=== PATIENT | female | born 1960 | race Caucasian/White ===

== ENCOUNTER 2024-04-20 12:22 | Emergency (ER) | payer MEDICARE, SELFPAY ==
[2024-04-20 12:24] VITALS: BP 143/92
[2024-04-20 12:30] VITALS: BP 127/75; BMI 23.5
[2024-04-20 12:58] LABS: % Basophils 0.8 % (0-2); % Eosinophils 2.7 % (0-6); % Immature Granulocytes 0.2 % (0-0.5); % Monocytes 7.2 % (1.7-9.3); % Neutrophils 74.1 % (42.2-75.2); Absolute Basophils 0.1 10^3/uL (0-0.2); Absolute Eosinophils 0.3 10^3/uL (0-0.7); Absolute Lymphocytes 1.4 10^3/uL (1.2-3.4); Absolute Monocytes 0.7 10^3/uL (0.1-0.6); Absolute Neutrophils 6.9 10^3/uL (1.4-6.5); Hematocrit 43.1 % (37.0-47.0); Hemoglobin 14.9 g/dL (12.0-16.0); Mean Corp Hgb Conc. 34.6 g/dL (33.0-37.0); Mean Corpuscular Hgb 33.2 pg (27.0-31.0); Mean Platelet Volume 10.1 fL (7.4-10.4); Nucleated Red Blood Cells % 0 %; Platelet Count 274 10^3/uL (130-400); Red Blood Cell Count 4.49 10^6/uL (4.20-5.40); Red Cell Dist. Width 12.3 % (11.5-14.5); White Blood Cell Count 9.3 10^3/uL (4.8-10.8)
[2024-04-20 13:13] LABS: ALT (SGPT) 24 U/L (0-35); AST (SGOT) 39 U/L (14-36); Albumin 4.1 g/dl (3.5-5.0); Alkaline Phosphatase 93 U/L (38-126); Blood Urea Nitrogen 5 mg/dl (7-17); Calcium 9.4 mg/dl (8.4-10.2); Carbon Dioxide 19 mmol/L (22-30); Chloride 108 mmol/L (98-107); Glucose 108 mg/dl (70-99); Potassium 4.5 mmol/L (3.5-5.1); Sodium 140 mmol/L (135-145); Total Bilirubin 0.8 mg/dl (0.2-1.3); Total Protein 6.5 g/dl (6.3-8.2); eGFR > 60.00
--- NOTE | 2024-04-20 13:15 | ED.GENMED ---
History of Present Illness
General
Chief Complaint: Breathing Problem
Source: patient
Exam Limitations: none
Time Seen by Provider: 04/20/24 13:03
History of Present Illness
History of Present Illness:
63-year-old female with history of COPD presents complaining of right sided chest pain starting 4 days ago getting worse. The pain is made worse with the cough breathing removed. She has been traveling extensively over the past [address] weeks[address]
from [facility] and [place] back to [facility] to here. She is moving here. She states she has been lifting boxes but she does not recall any significant injury. She denies any leg swelling or calf pain.
Phy Exam
Physical Exam
Physical Exam:
General: Uncomfortable appearing female no acute respiratory distress
HEENT: Normocephalic atraumatic
Heart: Regular rate and rhythm no murmur
Lungs: Clear no wheeze
Musculoskeletal exam: Right lateral chest wall is tender. No step-off or deformity
Abdomen is soft nontender nondistended no guarding rebound normal bowel sounds
Extremities: No cyanosis
Scores
Heart Failure Risk
Heart Failure Risk Score: Not Applicable
PESI
Age: 63
Sex: Female
History of cancer: No
History of heart failure: No
History of chronic lung disease: Yes
Heart rate >/= 110: No
Systolic BP <100 mmHg: No
Respiratory rate >/= 30: No
Temperature <36�C/96.8�F: No
Altered mental status (disorientation, lethargy, stupor, or coma): No
O2 saturation <90%: No
Score: 71
Class: Class 2: <86 (low mortality 1.7-3.5%)
Course
Orders/Labs/Results
Orders:
Orders
04/20/24 12:38
EKG [Electrocardiogram (*1)] Urgent
Reason for Study: Chest Pain
EKG- Treatment ONCE
04/20/24 12:43
CXR2 [CR Chest - 2 Views ] Urgent
Comment:
Reason For Exam: chest pain
04/20/24 12:49
Complete Blood Count/With Diff Urgent
Comprehensive Metabolic Panel Urgent
Troponin I Urgent
04/20/24 13:14
CT Chest Pe Study Urgent
Comment:
Reason For Exam: right chest pain, recent extended travel
04/20/24 13:16
Ketorolac [Toradol] 15 mg IV NOW STA
04/20/24 14:56
Apixaban [Eliquis] 10 mg PO NOW STA
Abnormal Lab Results
04/20/24
12:49
MCH 33.2 H pg
(27.0-31.0)
Absolute Neuts (auto) 6.9 H 10^3/uL
(1.4-6.5)
Absolute Monos (auto) 0.7 H 10^3/uL
(0.1-0.6)
Lymphocytes % 15.0 L %
(20.5-51.1)
Chloride 108 H mmol/L
(98-107)
Carbon Dioxide 19 L mmol/L
(22-30)
BUN 5 L mg/dl
(7-17)
Glucose 108 H mg/dl
(70-99)
AST 39 H U/L
(14-36)
04/20/24 12:49
04/20/24 12:49
Vital Signs
Initial and Last Documented VS:
Initial Vital Signs
Temp Pulse Resp BP Pulse Ox
98.0 F 97 16 143/92 99
04/20/24 12:24 04/20/24 12:24 04/20/24 12:24 04/20/24 12:24 04/20/24 12:24
Last Documented Vital Signs
Temp Pulse Resp BP Pulse Ox
98.5 F 85 18 127/75 96
04/20/24 12:30 04/20/24 12:30 04/20/24 12:30 04/20/24 12:30 04/20/24 13:15
MDM/Problems Addressed
Differential Diagnosis Includes:
Right chest pain with extensive travel. Consider PE versus muscular strain versus rib injury. X-ray ordered of the chest through triage is negative for acute finding. Vital signs are stable but given extensive travel, CT of the chest PE study
ordered
*Critical Care Note
Total Time (30-74mins, 75-104mins- exclusive of procedures): Not Applicable
Update Note
Update Note:
CT chest does demonstrate small PE in the right lung. No hypertension no heart strain vital signs remained stable. Pasi score 71 which puts her at a low risk. Curb sided pulmonology. Will start on Eliquis 10 mg twice a day for a week then drop
down to 5 mg twice a day for thereafter. She was advised to follow-up with pulmonology as well as family doctor secondary to mass noted on right breast. She was given a copy of her CAT scan report. Prescription for Eliquis was provided. Advised
against NSAIDs for the future while on Eliquis. Stable for discharge
ED Attending Note
-
Portions of this chart may have been created with voice recognition software.� Occasional wrong word or��sound alike� substitutions may have occurred due to the inherent limitations of voice recognition software.
Discharge Plan
Departure
Patient Disposition: Home (Routine Discharge)
Date of Disposition: 04/20/24
Time of Disposition: 14:57
Patient with high blood pressure during this ER visit?: No
Discharge Problem:
Pulmonary embolism
Instructions: Apixaban, Pulmonary embolism - Discharge instructions
Prescriptions:
New
Eliquis 5 mg tablet
5 mg PO BID Qty: 60 0RF
Rx Instructions:
Take 10mg twice a day for the first week. Then take 5mg twice a day for the time after.
Referrals:
NONE,* [Family Provider] -
Eliseo Taylor MD [Active] -
Activity Restrictions/Additional Instructions:
Start Eliquis. Use 10 mg twice a day for the first week then decrease to 5 mg twice a day for the weeks following. Please follow-up with pulmonology. As discussed there are other findings on CT scan that warrant follow-up with family doctor. You
may need a mammogram in the near future. Please return here for chest pain shortness of breath or other concerning finding
Interventions
Interventions:
*Risk Screen - Suicide Last Done: 04/20/24 12:24
*General Assessment Last Done: 04/20/24 12:24
*Neglect/Abuse Screening Last Done: 04/20/24 12:24
ED- Fall Risk Assessment Last Done: 04/20/24 12:30
*ED COVID-19 Vaccine History Last Done: 04/20/24 12:24
ED- Cardiac Assessment Last Done: 04/20/24 12:30
ED- Pulmonary Assessment Last Done: 04/20/24 12:30
Discharge Date and Time
Print Language: [id number]
[2024-04-20] MEDS: TORADOL 15 MG IV (13:19)
[2024-04-20 13:22] LABS: Troponin I < 0.012 ng/ml
[2024-04-20 13:43] VITALS: BP 127/75
[2024-04-20 14:00] VITALS: BP 124/80
[2024-04-20 15:07] VITALS: BP 136/81
[2024-04-20] MEDS: ELIQUIS 10 MG PO (15:10)
[2024-04-20 15:12] VITALS: BP 128/86
== END 2024-04-20 15:17 | disposition home or self-care (01) ==
LOC: EMR 12:22
PROVIDERS: EMERGENCY PHYSICIAN Student in an Organized Health Care Education/Training Program
DX: I26.99 Other pulmonary embolism without acute cor pulmonale (principal); N63.10 Unspecified lump in the right breast, unspecified quadrant; J44.9 Chronic obstructive pulmonary disease, unspecified; Z88.1 Allergy status to other antibiotic agents
CPT/HCPCS: 99285; 96374; 71046; 71275; 80053; 84484; 85025; 93005; Q9967

== ENCOUNTER → 2024-05-20 10:34 | Outpatient (REF) | payer MEDICARE, SELFPAY | LOC: WDC 10:34 | PROVIDERS: ATTENDING PHYSICIAN Hospitalist | DX: N63.10 Unspecified lump in the right breast, unspecified quadrant (principal); N63.20 Unspecified lump in the left breast, unspecified quadrant; N63.11 Unspecified lump in the right breast, upper outer quadrant; N63.21 Unspecified lump in the left breast, upper outer quadrant | CPT/HCPCS: 76642; 77063; 77067 ==

== ENCOUNTER → 2024-05-23 08:18 | Outpatient (REF) | payer MEDICARE, SELFPAY ==
--- NOTE | 2024-05-23 13:58 | OID.BR.INTR ---
[facility] Breast Navigator - Initial
- -
Date of Contact: 05/23/24
Met with patient. Patient given written information on navigator services available at [facility]. Will follow up as needed per protocol.
== END ==
LOC: WDC 08:18
PROVIDERS: ATTENDING PHYSICIAN Hospitalist
DX: N63.11 Unspecified lump in the right breast, upper outer quadrant (principal); N63.22 Unspecified lump in the left breast, upper inner quadrant
CPT/HCPCS: 88305; 19083; 88341; 88342; 88360; A4648

== ENCOUNTER → 2024-06-20 13:13 | Outpatient (REF) | payer MEDICARE, SELFPAY ==
[2024-06-20 13:42] LABS: % Basophils 0.7 % (0-2); % Eosinophils 1.2 % (0-6); % Immature Granulocytes 0.2 % (0-0.5); % Lymphocytes 18.6 % (20.5-51.1); % Monocytes 7.8 % (1.7-9.3); % Neutrophils 71.5 % (42.2-75.2); Absolute Basophils 0.1 10^3/uL (0-0.2); Absolute Eosinophils 0.1 10^3/uL (0-0.7); Absolute Lymphocytes 1.8 10^3/uL (1.2-3.4); Absolute Monocytes 0.8 10^3/uL (0.1-0.6); Absolute Neutrophils 6.9 10^3/uL (1.4-6.5); Hematocrit 43.5 % (37.0-47.0); Hemoglobin 14.5 g/dL (12.0-16.0); Mean Corp Hgb Conc. 33.3 g/dL (33.0-37.0); Mean Corpuscular Hgb 34.3 pg (27.0-31.0); Mean Corpuscular Volume 102.8 fL (81.0-99.0); Mean Platelet Volume 10.2 fL (7.4-10.4); Nucleated Red Blood Cells % 0 %; Platelet Count 233 10^3/uL (130-400); Red Blood Cell Count 4.23 10^6/uL (4.20-5.40); Red Cell Dist. Width 12.5 % (11.5-14.5); White Blood Cell Count 9.7 10^3/uL (4.8-10.8)
[2024-06-20 14:23] LABS: ALT (SGPT) 24 U/L (0-35); AST (SGOT) 36 U/L (14-36); Albumin 4.6 g/dl (3.5-5.0); Alkaline Phosphatase 70 U/L (38-126); Blood Urea Nitrogen 12 mg/dl (7-17); Calcium 9.7 mg/dl (8.4-10.2); Carbon Dioxide 22 mmol/L (22-30); Chloride 104 mmol/L (98-107); Glucose 96 mg/dl (70-99); Potassium 4.1 mmol/L (3.5-5.1); Sodium 142 mmol/L (135-145); Total Bilirubin 0.5 mg/dl (0.2-1.3); Total Cholesterol 226 mg/dl (50-199); Total Protein 7.3 g/dl (6.3-8.2); Triglyceride 262 mg/dl (10-149); Very Low Density Lipoprotein 52 mg/dl (0-30); eGFR > 60.00
[2024-06-20 14:31] LABS: HDL Cholesterol 110 mg/dl; LDL Cholesterol, Calculated 64 mg/dl
[2024-06-20 14:53] LABS: TSH Reflex To Free T4 2.68 uIU/ml (0.47-4.68)
== END ==
LOC: REG 13:13
PROVIDERS: ATTENDING PHYSICIAN Hospitalist
DX: Z76.89 Persons encountering health services in other specified circumstances (principal); E78.5 Hyperlipidemia, unspecified; E03.9 Hypothyroidism, unspecified
CPT/HCPCS: 36415; 80053; 80061; 84443; 85025

== ENCOUNTER → 2024-07-17 07:53 | Outpatient (REF) | payer MEDICARE, SELFPAY | LOC: WDC 07:53 | PROVIDERS: ATTENDING PHYSICIAN Surgery | DX: C50.411 Malignant neoplasm of upper-outer quadrant of right female breast (principal); C50.412 Malignant neoplasm of upper-outer quadrant of left female breast | CPT/HCPCS: 38792; 76942; A9541 ==

== ENCOUNTER 2024-07-18 12:09 | Inpatient (IN) | payer MEDICARE, SELFPAY ==
[2024-07-11 13:46] VITALS: BMI 18.8
[2024-07-11 15:07] LABS: Prealbumin (Transthyretin) 42.7 mg/dl (17.6-36.0)
[2024-07-11 15:10] LABS: Vitamin D, 25-OH*** 44.5 ng/mL (30-80)
[2024-07-18] VITALS (10 sets, daily range): BP systolic 1–142; BP diastolic 69–89; BMI 18.8
[2024-07-18] MEDS: TYLENOL 1000 MG PO (12:24)
[2024-07-18] MEDS: LOVENOX 40 MG SC (12:24)
[2024-07-18] MEDS: NORMOSOL-R/PLASMALYTE-A 1000 IV (12:24)
--- NOTE | 2024-07-18 16:19 | OR.RPT ---
Addendum entered and electronically signed by Tyra Peña MD 07/30/24 14:01:
Pre-Op Dx: Right breast ca
Post-Op Dx: Right breast ca
Procedure: Bilateral mastectomies and right sentinel lymph node mapping and biopsy
Anes: General
Path: Bilateral breasts, right sentinel nodes
EBL: 30cc
Complications: None
Original Note:
Operative Report
Operative Report
Patient is a 64-year-old female found to have bilateral breast carcinoma when undergoing imaging for pulmonary embolus. She presents now for bilateral mastectomies and sentinel lymph node mapping and biopsy. On the day prior to the procedure she
presented to the breast imaging center where technetium radiotracer was injected bilaterally. On the day of surgery she presented and verified site and procedure. DVT and antibiotic prophylaxis were provided and the patient was taken to the
operating room. In the supine position general anesthesia was induced. Both breasts were prepped and draped in usual sterile fashion. Attention was first turned to the right breast where a standard Basil incision was made sharply with the
blade. Skin flaps were elevated with the PlasmaBlade and any larger vessels were controlled with 3-0 silk tie or suture ligature. Breast was taken off the chest wall and is superior to inferior dimension. Timeout about it was noted and the
specimen was oriented for the pathologist. Specimen was sent immediately for processing. Entry into the axilla was made by incising clavipectoral fascia. Using the gamma probe to sentinel node packets were encountered and excised. Feeding
vessels to the nodes were controlled with 3-0 silk tie. Frozen section analysis in the nodes was negative. Hemostasis was verified. A pexed to block was performed by instilling 20 cc of 0.5% Marcaine. A round channel drain 15 Albanian was passed
through the inferior flap and secured to the skin with 2-0 nylon. Wound was closed using strike that a portion of Surgicel was placed over the wound and incision was closed using simple interrupted 3-0 plain on subcutaneous tissue and skin was
closed with a running subcuticular 4 Monocryl. In a similar fashion the left side was approached and the breast was removed. Tumor was palpable and close to skin therefore overlying skin was harvested as well. The axilla was entered in the same
fashion and one of the 2 sentinel nodes was positive therefore level 2 axillary dissection was performed. Care was taken not to dissect on or about the axillary vein. Thoracodorsal long thoracic and 1 intercostal brachial nerve were identified and
preserved out the course. Hemostasis was verified. The axilla was clipped for potential radiation therapy marking. Piece of Surgicel was applied on this side and the packs block was applied as well. This wound was closed over a round channel
drain and skin incision was closed in the same fashion. Surgical glue and sterile compressive dressings were applied. All sponge needle and instrument counts are correct and the patient was transferred to the recovery room in stable condition
[place] Node Bx Breast Cancer
[place] Node Bx Breast Cancer
Operation performed with curative intent: Yes
Tracer(s) to ID [place] Nodes in Non-Neoadjuvant setting: Radioactive Tracer
Tracer(s) to ID [place] Nodes in the Neoadjuvant Setting: N/A
All nodes at end of dye-filled Lymphatic Channel removed: Yes
All Significantly Radioactive Nodes were removed: Yes
All Palpably Suspicious Nodes were Removed: Yes
--- NOTE | 2024-07-18 17:40 | PTCARENOTE ---
Received patient from PACU around 1720 via bed in stable condition. Surgical bra in place. B/L TAMMI drains with serousangunous drainage. Spoke with Dr. Peña regarding limb restrictions. Dr. Peña said to not use the left arm. IV team notified. IV
switched to R arm. [place] limb alert bracelet applied to LUE. Patient oriented to room. Call ruelas in reach.
[2024-07-18] MEDS: DILAUDID 0.5 MG IV ×2 (18:30→23:21)
[2024-07-18] MEDS: SINGULAIR PO (18:34)
[2024-07-18] MEDS: SYMBICORT 160/4.5 MCG INHALER 2 PUFF INH (20:17)
[2024-07-18] MEDS: NICODERM TRANSDERMAL 14 MG TRANSDERM (20:40)
[2024-07-18] MEDS: COLACE 100 MG PO (20:40)
[2024-07-18] MEDS: NORCO 5/325 1 TABLET PO (20:58)
[2024-07-18] MEDS: D5/0.45%NSS with KCL 20 MEQ 1000 IV (21:03)
[2024-07-18] MEDS: ZOFRAN 4 MG IV (23:20)
[2024-07-19] VITALS (10 sets, daily range): BP systolic 5–120; BP diastolic 55–78
[2024-07-19] MEDS: COMPAZINE 5 MG IV (02:12)
[2024-07-19] MEDS: DILAUDID 0.5 MG IV ×2 (02:17→07:53)
[2024-07-19] MEDS: TYLENOL 1000 MG PO ×2 (04:32→20:04)
[2024-07-19 05:34] LABS: Hematocrit 32.6 % (37.0-47.0)
[2024-07-19 06:01] LABS: Blood Urea Nitrogen 6 mg/dl (7-17); Calcium 7.6 mg/dl (8.4-10.2); Carbon Dioxide 22 mmol/L (22-30); Chloride 99 mmol/L (98-107); Estimated Creatinine Clearance 72 ml/min; Glucose 175 mg/dl (70-99); Potassium 4.1 mmol/L (3.5-5.1); Sodium 132 mmol/L (135-145); eGFR > 60.00
[2024-07-19] MEDS: SPIRIVA RESPIMAT 2.5 MCG 2 PUFF INH (07:29)
[2024-07-19] MEDS: SYMBICORT 160/4.5 MCG INHALER 2 PUFF INH ×2 (07:29→18:11)
[2024-07-19] MEDS: PROTONIX 40 MG PO (07:45)
[2024-07-19] MEDS: COLACE 100 MG PO ×2 (07:45→19:49)
[2024-07-19] MEDS: NSS 500 IV (07:47)
[2024-07-19] MEDS: CARDIZEM CD PO (07:49)
[2024-07-19] MEDS: NORVASC PO (07:50)
[2024-07-19] MEDS: ISMO 20 MG PO (08:39)
--- NOTE | 2024-07-19 08:50 | W.PN.UPDATE ---
Update Note
Progress Note Update
The patient is POD #1 S/P bilateral mastectomies, right sentinel node mapping and biopsy and left modified radical mastectomy due to positive sentinel node. Overnight she had nausea and vomiting and was hypotensive this am. Exam reveals hematoma
under the left chest flap. Plan return to OR for evacuation. Procedure, alternatives, risks (inherent and unexpected), morbidity and mortality discussed with patient who verbalizes she understands and gives informed consent.
[2024-07-19] MEDS: ANCEF 10 IV (09:03)
[2024-07-19] MEDS: D5/0.45%NSS with KCL 20 MEQ 1000 IV (09:15)
--- NOTE | 2024-07-19 10:29 | CM ---
Patient seen at bedside. Patient daughter on phone and stated that patient is to come to stay with her in apartment with 3 floors of stairs. Patient lives in [place] and is here to stay with patient daughter. Patient PCP is Dr. Ama Maldonado and she
also sees Dr. Tejada. Patient [facility]. Patient reviewed VN options with daughter and CM and requested [facility]. CM will send referral via all scripts and await response. CM will continue to follow for discharge planning needs.
Plan; daughter home with VN; referral to [facility] awaiting response.
[2024-07-19] MEDS: NSS 1000 IV (12:03)
--- NOTE | 2024-07-19 12:32 | CON.HOSP ---
Consultation
-
Date/Time Consultation Requested: 07/19/24 9 30 AM
Date/Time Consultation Performed: 07/19/24 11 30 AM
Requesting Provider: Mariana
Performing Provider: Shane
Reason for Consultation: Hypotension, medical co-management
Family Physician
-
Family Physician: Ama Maldonado MD
Chief Complaint
-
bilateral mastectomy
History of Present Illness
64 y/o F hx of PE (on Eliquis), HTN, HLD, Hypothyroidism, hx of CVA, Emphysema admitted under Dr. Peña's service for hx of bilateral breast cancer. She underwent bilateral mastectomies, right sentinel node mapping and biopsy and left modified
radical mastectomy due to positive sentinel node on 07/18. Overnight patient was nauseous with vomiting and noted to be hypotensive. Clinically her L surgical bed was noted to be firm and Hb was 3 grams lower than baseline. Exam per Dr. Peña
revealed hematoma under the L breast flap. Patient was given IVF and BP meds held. Blood was ordered in anticipation for return to OR today for hematoma evacuation. Hospitalist service consulted for hypotension and BP med management.
Patient at present denies any complaints. With IVF, BP now improved from 80s to low 100s. Patient pending OR at 230pm today.
Medical History
Past Medical History
Past Medical History: Reports Other (PE (on Eliquis), HTN, HLD, Hypothyroidism, hx of CVA, Emphysema)
Past Surgical History: Reports Other (bilateral mastectomies, right sentinel node mapping and biopsy and left modified radical mastectomy due to positive sentinel node (this admission). Also ovarian removals, appendectomy.)
Social History
Tobacco: Smoker (6-10 cigs daily)
Alcohol: Occasional
Drug: None
Personal:
Living: With Family
Family History
Family History: Reviewed & Not Pertinent
Allergies / Home Medications
Allergies reflects when Allergies were last updated in [employer]
Home Medications with original date entered in [employer]
Allergy/Medication List:
Allergies
Allergy/AdvReac Type Severity Reaction Status Date / Time
doxycycline Allergy Redness, Verified 07/18/24 12:10
blows up
like a
balloon
shellfish derived Allergy Anaphylaxis Verified 07/18/24 12:10
Home Medications
apixaban 5 mg tablet (Eliquis) 5 mg PO BID #60 tabs 04/20/24
amlodipine 5 mg tablet 5 mg PO DAILY 07/15/24
aspirin 81 mg chewable tablet 81 mg PO DAILY 07/15/24
diltiazem HCl 180 mg tablet,extended release 24 hr (Cardizem LA) 180 mg PO DAILY 07/15/24
fluticasone fur. 200 mcg-umeclid 62.5 mcg-vilant 25 mcg inhalat.powder (Trelegy Ellipta) 1 inh inhalation DAILY 07/15/24
isosorbide mononitrate 20 mg tablet 20 mg PO DAILY 07/15/24
nitroglycerin 0.4 mg sublingual tablet 0.4 mg sublingual Q5-15M PRN chest pain 07/15/24
montelukast 10 mg tablet 10 mg PO DAILY 07/18/24
Review of Systems
-
A 12 point Review of Systems was completed except as noted: Yes
Constitutional: Reports No Symptoms
EENT: Reports No Symptoms
Respiratory: Reports No Symptoms
Cardiac: Reports No Symptoms
Abdomen/GI: Reports No Symptoms
Skin: Reports See HPI
Physical Exam
Vital Signs
Vital Signs
Temp Pulse Resp BP Pulse Ox
97.3 F 85 16 108/67 96
07/19/24 11:20 07/19/24 11:20 07/19/24 11:20 07/19/24 11:20 07/19/24 11:20
Physical Exam
General: No Apparent Distress
HEENT: Normocephalic and Anicteric
Respiratory: Clear; Negative Wheezes
Cardiac: S1/S2 and Regular Rhythm
Breast: Deferred by me (refer to Dr. Peña note for breast finding)
Genito-urinary: No Costovertebral Tend
Neuro: AO x 3
Hematologic/Lymphatic: No Lymphadenopathy
Psych: Calm
Laboratory Results
-
Laboratory Results
07/19/24 04:28
07/19/24 04:28
Data Reviewed
-
Total Time Spent with Patient (in minutes): 62
Lab Data: Labs Reviewed
Impression / Plan
-
Assessment:
L breast hematoma under L chest flap
s/p bilateral mastectomies, right sentinel node mapping and biopsy and left modified radical mastectomy due to positive sentinel node 07/18 for bilateral breast cancer
- Follow primary team (Dr. Peña) recs
- for OR today for hematoma evacuation
Acute blood loss anemia
- Hb 11 (baseline 14)
- monitor Hb
- 2 units PRBC on hold for OR
- holding Eliquis
Acute hypotension from hematoma/bleeding
Hx of Essential HTN
- holding Norvasc/Cardizem/Isosorbide
- monitor Hb, may need blood transfusion if lower
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
- CT: few small filling defects in right lower lobe segmental/subsegmental branches compatible with minimal thromboembolus.
- holding Eliquis for operative intervention, hematoma. Resume when cleared by breast surgery
Hypothyroidism
- not on meds per list - will clarify w patient
HLD
hx of CVA
- holding ASA for anemia/bleeding
Emphysema
Active smoker
- continue Symbicort/Spiriva
- continue Nicotine patch
DVT ppx: SCDs
Code: Full
[2024-07-19 13:16] LABS: Hematocrit 26.3 % (37.0-47.0); Hemoglobin 8.9 g/dL (12.0-16.0)
--- NOTE | 2024-07-19 16:25 | OR.RPT ---
Addendum entered and electronically signed by Tyra Peña MD 07/30/24 14:48:
[place] node biopsy
Operation performed with curative intent: Yes
Tracer to identify nodes in non-neoadjuvant setting: Radioactive
Tracer to identify nodes in neoadjuvant setting: N/A
All significantly radioactive nodes removed: Yes
All nodes at end of dye filled channels removed: N/A
All palpably suspicious nodes were removed: Yes
BX Proven Pos Nodes Marked Prior to Chemo ID'd and Removed: N/A
Axillary Dissection
Operation performed with curative intent: Yes
Resection performed within boundaries of the axillary vein, chest wall (serratus anterior) and latissimus dorsi: Yes
Nerves identified and preserved during dissection: long thoracic, yes; thoracodorsal, yes; branches of the intercostal brachial nerve, yes.
Level III nodes removed: No
Addendum entered and electronically signed by Tyra Peña MD 07/30/24 13:59:
Pre-Op Diagnosis: Right breast carcinoma and left chest wall hematoma
Post-Op Diagnosis: Right breast carcinoma and left chest wall hematoma
Procedure: Evacuation left chest wall hematoma ([id number])
Anes: GET
EBL: 50cc
Complications: None
Original Note:
Operative Report
Operative Report
The patient is a 64-year-old female who had undergone bilateral mastectomies with right sentinel lymph node mapping and biopsy and left axillary dissection yesterday who developed a left chest wall hematoma and presents for evacuation. Patient was
identified brought to the operating room. DVT and antibiotic prophylaxis were provided. General anesthesia was induced in the supine position. The chest on both sides was prepped and draped in usual sterile fashion. The left mastectomy incision
was opened sharply with the blade. Clot was evacuated and packs were placed in all quadrants of the chest. Then a systematic search for hemostasis was undertaken. There was no evidence of active bleeding in any area. Any small amount of oozing
tissue was cauterized. Wound was irrigated and suction with warm water and again inspected for hemostasis which was verified. The previous channel drain was transected and removed. A new 15 Malian drain was inserted through the same exit site in
the inferior flap and secured to the skin using 2-0 nylon. A pexed to block was performed using 20 cc of 0.5% Marcaine diluted one-to-one with injectable saline. Surgicel was placed over the chest wall and in the axilla. The wound was closed
using simple interrupted 3-0 plain of subcutaneous tissue and a running subcuticular 4-0 Monocryl on skin. Surgical glue was applied. On the right mastectomy site there was an area of bruising and possible ischemia therefore that skin was coated
with a layer of Nitropaste. Sterile compressive dressings were applied. All sponge needle and instrument counts were correct and the patient was transferred to the recovery room in stable condition thank you
[2024-07-19] MEDS: DILAUDID 0.25 MG IV (16:31)
--- NOTE | 2024-07-19 17:15 | PTCARENOTE ---
patient received from PACU AAOx3 reports no discomfort at this time. Patient very pleasant.
[2024-07-19] MEDS: SINGULAIR 10 MG PO (17:21)
[2024-07-19] MEDS: NICODERM TRANSDERMAL 14 MG TRANSDERM (19:49)
[2024-07-20] VITALS (10 sets, daily range): BP systolic 96–127; BP diastolic 59–74
[2024-07-20] MEDS: DILAUDID 0.5 MG IV (00:29)
[2024-07-20 06:30] LABS: Hematocrit 22.5 % (37.0-47.0); Hemoglobin 7.6 g/dL (12.0-16.0); Mean Corp Hgb Conc. 33.8 g/dL (33.0-37.0); Mean Corpuscular Hgb 34.2 pg (27.0-31.0); Mean Corpuscular Volume 101.4 fL (81.0-99.0); Mean Platelet Volume 10.7 fL (7.4-10.4); Platelet Count 149 10^3/uL (130-400); Red Blood Cell Count 2.22 10^6/uL (4.20-5.40); Red Cell Dist. Width 12.1 % (11.5-14.5); White Blood Cell Count 7.5 10^3/uL (4.8-10.8)
[2024-07-20 06:59] LABS: Blood Urea Nitrogen 5 mg/dl (7-17); Calcium 7.6 mg/dl (8.4-10.2); Carbon Dioxide 25 mmol/L (22-30); Chloride 103 mmol/L (98-107); Estimated Creatinine Clearance 72 ml/min; Glucose 113 mg/dl (70-99); Sodium 133 mmol/L (135-145); eGFR > 60.00
[2024-07-20] MEDS: SYMBICORT 160/4.5 MCG INHALER 2 PUFF INH ×2 (07:27→19:17)
[2024-07-20] MEDS: SPIRIVA RESPIMAT 2.5 MCG 2 PUFF INH (07:27)
[2024-07-20] MEDS: NSS 1000 IV (07:29)
[2024-07-20] MEDS: PROTONIX 40 MG PO (08:08)
[2024-07-20] MEDS: COLACE 100 MG PO ×2 (08:08→20:43)
[2024-07-20] MEDS: TYLENOL 1000 MG PO ×2 (08:11→23:18)
--- NOTE | 2024-07-20 09:42 | W.PN.HOSP.TC ---
Today's Communication/Plan
-
holding BP meds, Eliquis
1 unit PRBC today
Assessment / Plan
Assessment / Plan
Assessment:
L breast hematoma under L chest flap
s/p bilateral mastectomies, right sentinel node mapping and biopsy and left modified radical mastectomy due to positive sentinel node 07/18 for bilateral breast cancer
- s/p OR 07/19 for hematoma evacuation
- Follow primary team (Dr. Peña) recs
Acute blood loss anemia
- Hb 7.6 (baseline 14)
- monitor Hb
- transfuse 1 unit PRBC today; dw Dr. Peña
- holding Eliquis
Acute hypotension from hematoma/bleeding
Hx of Essential HTN
- holding Norvasc/Cardizem/Isosorbide
- blood transfusion might help with BP
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
- CT: few small filling defects in right lower lobe segmental/subsegmental branches compatible with minimal thromboembolus.
- holding Eliquis for operative intervention, hematoma. Resume when cleared by breast surgery
Hypothyroidism
- outpatient H&P suggest levothyroxine 25mcg - will add
HLD
hx of CVA
- holding ASA for anemia/bleeding
Emphysema
Active smoker
- continue Symbicort/Spiriva
- continue Nicotine patch
DVT ppx: SCDs
Code: Full
Hospitalist service will follow along.
Anticipated Discharge: 24 - 48 hours
Subjective/Interval History
-
Date of Service: July 20, 2024
s/p hematoma evacuation 07/19
slightly SOB with exertion; Hb 7.6 today
blood transfusion planned by breast surgery
Objective Data
-
Labs:
Laboratory Results
07/20/24
06:15
WBC 7.5
Hgb 7.6 L
Hct 22.5 L
Plt Count 149
Sodium 133 L
Potassium 4.0
Chloride 103
Carbon Dioxide 25
BUN 5 L
Creatinine 0.6
Glucose 113 H
Calcium 7.6 L
Vital Signs:
Vital Signs
Temp Pulse Resp BP Pulse Ox
98.1 F 95 16 108/63 99
07/20/24 07:17 07/20/24 07:30 07/20/24 07:30 07/20/24 07:17 07/20/24 07:30
I&O
07/19/24 07/20/24 07/21/24
06:59 06:59 06:59
Intake Total 1560 / 1560 2360 / 2360
Output Total 1422 / 1422 530 / 530
Balance 138 / 138 1830 / 1830
Physical Exam
-
General: No Apparent Distress
HEENT: Normocephalic and Atraumatic
Cardiac: Regular Rhythm and S1/S2
Breast: Deferred by me
GI: Soft
Genito-urinary: No Costovertebral Tender
Musculoskeletal: No Edema
Neuro: AO x 3
Hematologic / Lymphatic: No Lymphadenopathy
Psych: Calm
Data Reviewed
-
Total Time Spent with Patient (in minutes): 44
Labs: Labs Reviewed by me
--- NOTE | 2024-07-20 10:56 | CM ---
Addendum entered by Grisel Jha 07/20/24 15:23:
daughter suggested [facility], additional referrals sent. Daughter was in health care and indicated that she would reach out to physician if needed to arrange alternative plan.
Addendum entered by Grisel Jha 07/20/24 15:19:
additional referrals sent and physician updated. CM will call to patient daughter to update her.
Addendum entered by Grisel Jha 07/20/24 15:08:
[facility] called back to decline due to insurance. CM will reach out to [facility] for review.
Addendum entered by Grisel Jha 07/20/24 12:44:
fax [phone] [facility]
Addendum entered by Grisel Jha 07/20/24 12:40:
patient accepted by [facility].
Original Note:
Patient seen at bedside. Patient states she is eager to go home pending physician assessment. [facility] referral sent yesterday, not able to accept. Referral sent to [facility] awaiting response. CM will continue to follow for discharge
planning needs.
Plan; home with daughter in [place].
--- NOTE | 2024-07-20 11:21 | W.PN.UPDATE ---
Update Note
Progress Note Update
The pt is POD # 2 S/P bilateral mastectomies, right sentinel node mapping and biopsy and left axillary dissection who returned to the OR yesterday to evacuate a left chest wall hematoma. She has remained stable overnight however with borderline
hypotension. Hgb this am is 7.6 therefore she consented to infusion of one unit of PRBCs. She is tolerating PO intake and incisions are viable with no further evidence of bleeding. Will continue in hospital through the day for continued monitoring
for bleeding. Tentative D/C to daughter's apartment in [place] tomorrow. Appreciate Medicine's help.
[2024-07-20] MEDS: SINGULAIR 10 MG PO (18:05)
[2024-07-20] MEDS: NICODERM TRANSDERMAL 14 MG TRANSDERM (20:42)
[2024-07-20] MEDS: DILAUDID IV (23:08)
[2024-07-21] MEDS: TYLENOL 650 MG PO (03:35)
[2024-07-21] MEDS: SYNTHROID 25 MCG PO (05:56)
[2024-07-21 07:04] LABS: Hematocrit 25.5 % (37.0-47.0); Mean Corp Hgb Conc. 35.3 g/dL (33.0-37.0); Mean Corpuscular Hgb 33.8 pg (27.0-31.0); Mean Corpuscular Volume 95.9 fL (81.0-99.0); Mean Platelet Volume 11.3 fL (7.4-10.4); Platelet Count 144 10^3/uL (130-400); Red Blood Cell Count 2.66 10^6/uL (4.20-5.40); Red Cell Dist. Width 14.3 % (11.5-14.5); White Blood Cell Count 8.6 10^3/uL (4.8-10.8)
[2024-07-21] MEDS: SPIRIVA RESPIMAT 2.5 MCG 2 PUFF INH (07:22)
[2024-07-21] MEDS: SYMBICORT 160/4.5 MCG INHALER 2 PUFF INH (07:22)
[2024-07-21 07:24] LABS: Blood Urea Nitrogen 7 mg/dl (7-17); Calcium 8.1 mg/dl (8.4-10.2); Carbon Dioxide 24 mmol/L (22-30); Chloride 106 mmol/L (98-107); Estimated Creatinine Clearance 72 ml/min; Glucose 88 mg/dl (70-99); Potassium 3.8 mmol/L (3.5-5.1); Sodium 136 mmol/L (135-145); eGFR > 60.00
--- NOTE | 2024-07-21 08:55 | W.PN.UPDATE ---
Update Note
Progress Note Update
The patient is POD#3 S/P bilateral mastectomies with return to OR for left sided chest wall bleeding. She has no further evidence of bleeding, but drains were clogged and now open. Spoke with Dr. Allyson Solano after I see her . Ok
for D/C, still working on VNA.
--- NOTE | 2024-07-21 09:00 | W.DS.TRANS ---
DC Summary - City Clerk
-
Discharge Instructions:
Sleep Apnea Risk Low
Discharge Diagnosis/Procedures Bilateral breast cancer
Diet No restrictions
Activity No strenuous activity
Driving Restrictions Not until seen by your Dr
Bathing Restrictions OK to Shower
Other Services VN
Wound Care Change dressings daily, keep bra on, empty and
record drainage
Instructions:
Stand-Alone Forms:
Changes to Home Medications: Yes
Discharge Medications:
DC Medications w/original date entered in [facility]
apixaban 5 mg tablet (Eliquis) 5 mg PO BID #60 tabs 04/20/24
amlodipine 5 mg tablet 5 mg PO DAILY 07/15/24
aspirin 81 mg chewable tablet 81 mg PO DAILY 07/15/24
diltiazem HCl 180 mg tablet,extended release 24 hr (Cardizem LA) 180 mg PO DAILY 07/15/24
fluticasone fur. 200 mcg-umeclid 62.5 mcg-vilant 25 mcg inhalat.powder (Trelegy Ellipta) 1 inh inhalation DAILY 07/15/24
isosorbide mononitrate 20 mg tablet 20 mg PO DAILY 07/15/24
nitroglycerin 0.4 mg sublingual tablet 0.4 mg sublingual Q5-15M PRN chest pain 07/15/24
montelukast 10 mg tablet 10 mg PO DAILY 07/18/24
levothyroxine 25 mcg tablet 25 mcg PO DAILY 07/20/24
Home Medication Changes
Pending Results: Yes
Additional Pending Results:
final pathology report
Total time spent discharging patient (in min): 45
--- NOTE | 2024-07-21 09:04 | CM ---
Addendum entered by Maryia Penn 07/21/24 09:59:
Accepted by [facility]
Has ride home
Plan - Home with [facility]
f - [phone]
Original Note:
Received call from Qiana from [facility] - can accept
--- NOTE | 2024-07-21 09:24 | W.PN.HOSP.TC ---
Today's Communication/Plan
-
sign off with expected dc today. dw Dr. Peña
Assessment / Plan
Assessment / Plan
Assessment:
L breast hematoma under L chest flap
s/p bilateral mastectomies, right sentinel node mapping and biopsy and left modified radical mastectomy due to positive sentinel node 07/18 for bilateral breast cancer
- s/p OR 07/19 for hematoma evacuation
- Follow primary team (Dr. Peña) recs
Acute blood loss anemia
- Hb 9.0 s/p 1 unit PRBC (baseline 14)
- holding Eliquis
Acute hypotension from hematoma/bleeding - resolved
Hx of Essential HTN
- resume Norvasc/Cardizem/Isosorbide at discharge
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
- CT: few small filling defects in right lower lobe segmental/subsegmental branches compatible with minimal thromboembolus.
- provoked in setting [place]
- s/p 3 months Eliquis - now permanently stopped; agree.
Hypothyroidism
- levothyroxine 25mcg
HLD
hx of CVA
- continue ASA at discharge
Emphysema
Active smoker
- continue Symbicort/Spiriva
- continue Nicotine patch
DVT ppx: SCDs
Code: Full
Hospitalist service will sign off with expected dc today. Thank you.
Anticipated Discharge: Today
Subjective/Interval History
-
Date of Service: July 21, 2024
denies any new complaints
Hb 9.0
scheduled for DC today d/w Dr. Peña
Objective Data
-
Labs:
Laboratory Results
07/21/24
05:45
WBC 8.6
Hgb 9.0 L
Hct 25.5 L
Plt Count 144
Sodium 136
Potassium 3.8
Chloride 106
Carbon Dioxide 24
BUN 7
Creatinine 0.6
Glucose 88
Calcium 8.1 L
Vital Signs:
Vital Signs
Temp Pulse Resp BP Pulse Ox
98.6 F 79 16 111/68 97
07/20/24 22:53 07/21/24 07:26 07/21/24 07:26 07/20/24 22:53 07/21/24 07:26
I&O
07/20/24 07/21/24 07/22/24
06:59 06:59 06:59
Intake Total 2360 / 2360 2350 / 2350
Output Total 530 / 530 280 / 280
Balance 183 / 1830 2069 / 2069
Physical Exam
-
General: No Apparent Distress
HEENT: Normocephalic and Atraumatic
Respiratory: Clear to Auscultation; Negative Wheezes
Cardiac: Regular Rhythm and S1/S2
Breast: Deferred by me
GI: Soft and Nontender
Genito-urinary: No Costovertebral Tender
Neuro: AO x 3
Hematologic / Lymphatic: No Lymphadenopathy
Psych: Calm
Data Reviewed
-
Total Time Spent with Patient (in minutes): 41
Labs: Labs Reviewed by me
[2024-07-21] MEDS: NORVASC 5 MG PO (09:34)
[2024-07-21] MEDS: CARDIZEM CD 180 MG PO (09:34)
[2024-07-21] MEDS: ISMO 20 MG PO (09:34)
[2024-07-21] MEDS: COLACE 100 MG PO (09:34)
[2024-07-21] MEDS: PROTONIX 40 MG PO (09:34)
== END 2024-07-21 10:02 | disposition home health service (06) | DRG 580 ==
LOC: 2 SOUTH 12:09
PROVIDERS: ADMITTING PHYSICIAN Surgery; CONSULT PHYSICIAN Internal Medicine; FAMILY PHYSICIAN Hospitalist
PROC: 07B60ZX Excision of Left Axillary Lymphatic, Open Approach, Diagnostic (ICD-10-PCS; 2024-07-18)
PROC: 0HTV0ZZ Resection of Bilateral Breast, Open Approach (ICD-10-PCS; 2024-07-18)
PROC: 07B50ZX Excision of Right Axillary Lymphatic, Open Approach, Diagnostic (ICD-10-PCS; 2024-07-18)
PROC: HZ90ZZZ Pharmacotherapy for Substance Abuse Treatment, Nicotine Replacement (ICD-10-PCS; 2024-07-19)
PROC: 0JC60ZZ Extirpation of Matter from Chest Subcutaneous Tissue and Fascia, Open Approach (ICD-10-PCS; 2024-07-19)
PROC: 30233N1 Transfusion of Nonautologous Red Blood Cells into Peripheral Vein, Percutaneous Approach (ICD-10-PCS; 2024-07-20)
DX: C50.911 Malignant neoplasm of unspecified site of right female breast (principal); D62 Acute posthemorrhagic anemia; L76.32 Postprocedural hematoma of skin and subcutaneous tissue following other procedure; C50.912 Malignant neoplasm of unspecified site of left female breast; I95.81 Postprocedural hypotension; I10 Essential (primary) hypertension; Y83.8 Other surgical procedures as the cause of abnormal reaction of the patient, or of later complication, without mention of misadventure at the time of the procedure; Y92.239 Unspecified place in hospital as the place of occurrence of the external cause; E78.5 Hyperlipidemia, unspecified; I25.10 Atherosclerotic heart disease of native coronary artery without angina pectoris; J45.909 Unspecified asthma, uncomplicated; E03.9 Hypothyroidism, unspecified; J43.9 Emphysema, unspecified; F17.210 Nicotine dependence, cigarettes, uncomplicated; Z79.01 Long term (current) use of anticoagulants; Z86.711 Personal history of pulmonary embolism; Z86.73 Personal history of transient ischemic attack (TIA), and cerebral infarction without residual deficits; Z79.82 Long term (current) use of aspirin; Z88.1 Allergy status to other antibiotic agents; Z91.013 Allergy to seafood
CPT/HCPCS: 88307; 88332; 36415; 80048; 82306; 84134; 85014; 85018; 85027; 86850; 86900; 86901; 86920; 88331; 88342; 93005; 94640; 99406; C1729; L8000; P9016